=== PATIENT | male | born 1965 | race Caucasian/White ===

== ENCOUNTER 2021-12-29 06:57 | Day surgery (SDC) | payer BC ==
[2021-12-28 15:53] LABS: Absolute Lymphocytes (CBC) 1.8 K/uL (0.7-4.9); Hematocrit 35.3 % (39.6-49.0); Lymphocytes % 31.1 % (15.3-44.8); MPV 8.1 fL (7.6-11.3); RBC Red Blood Cell Count 4.53 M/uL (4.33-5.43)
--- NOTE | 2021-12-28 15:55 | RAD REPORT ---
EXAM DESCRIPTION: RAD - Chest Pa And Lat (2 Views) - 12/28/2021 3:48 pm CLINICAL HISTORY: Pre op pending hernia surgery COMPARISON: Chest Pa And Lat (2 Views) dated 03/23/2021 FINDINGS: Lines: None. Lungs: No evidence of edema or pneumonia. Pleural: No significant pleural effusions or pneumothorax. Cardiac: The heart size is within normal limits. Mediastinum: Within normal limits. Bones: No acute fractures. Other: Surgical changes in the epigastrium. IMPRESSION: No acute cardiopulmonary disease.
[2021-12-28 16:38] LABS: Potassium 3.6 mmol/L (3.5-5.1)
[2021-12-29] MEDS ORDERED: MIDAZOLAM HCL 2 MG/2 ML INJ ONE (07:04)
[2021-12-29] MEDS ORDERED: propofoL 200 MG/20 ML VIAL IV ONE (07:04)
[2021-12-29] MEDS ORDERED: LIDOCAINE 2% MPF 5 ML VIAL ONE (07:04)
[2021-12-29] MEDS ORDERED: ROCURONIUM 50 MG/5 ML VIAL IV ONE (07:04)
[2021-12-29] MEDS ORDERED: FENTANYL CITR 100 MCG/2 ML ONE (07:04)
[2021-12-29] MEDS ORDERED: ONDANSETRON 4 MG/2 ML VIAL ONE (07:07)
[2021-12-29] MEDS ORDERED: Ringers Lactate 1,000 ML IV ONE ×2 (07:21→10:26)
[2021-12-29] MEDS ORDERED: CEFAZOLIN SODIUM 1 GM/VIAL ONE (08:57)
[2021-12-29] MEDS ORDERED: KETOROLAC 30 MG/ML INJ ONE (09:23)
[2021-12-29] MEDS ORDERED: GLYCOPYRROLATE 0.2 MG/ML SYR ONE (10:00)
[2021-12-29] MEDS ORDERED: NEOSTIGMINE 1 MG/ML -5 ML ONE (10:01)
[2021-12-29] MEDS ORDERED: MORPHINE 10 MG/ML VIAL ONE (10:02)
--- NOTE | 2021-12-29 10:16 | P.BOP ---
Preoperative diagnosis: incarcerated incisional ventral hernia Postoperative diagnosis: same Primary procedure: Laparoscopic repair of incarcerated incisional ventral hernia with mesh Real Estate Subagent: KENYA TRIPP ([employer]) Estimated blood loss: <10cc Specimen: sac Findings: see dicta Anesthesia: General Complications: None Implants: ventralex mesh medium Transferred to: Recovery Room Condition: Good
--- NOTE | 2021-12-29 12:14 | DS ---
Diagnosis: Incarcerated incisional ventral hernia. Procedure: Laparoscopic repair of incarcerated incisional ventral hernia with mesh. Disposition: Home. Activity: As tolerated. No heavy lifting. Plan: Follow up in my office in 1 week. Call for appointment at [phone]. Keep area dry for 48 coni rs, then may shower. Use abdominal binder. JANEE/SHARON Voice ID: [id number] Report ID: [id number]
--- NOTE | 2021-12-29 12:27 | OP ---
Date of Procedure: 12/29/2021 Surgeon: Marshall Simmons MD Hoist Worker: DIONICIO Alexander. Preoperative Diagnosis: Incarcerated incisional ventral hernia. Postoperative Diagnosis: Incarcerated incisional ventral hernia. Procedure: Laparoscopic repair of incarcerated incisional ventral hernia with mesh. Estimated Blood Loss: Less than 10 cc. Specimen: Hernia sac. Finding: Incarcerated omentum through the hernia sac. Anesthesia: General plus local. Implant: Medium Ventralex mesh. Indication: This is the case of a 56-year-old patient comes to us with a bulge over the incision loc ated in the mid ventral region. He has previous surgery to that area, so we diagnosed with incisiona l ventral hernia, tender, not reducible. So benefits, alternatives, and risks of laparoscopic possib le open repair of the incisional ventral hernia with possible mesh fully explained, which include, bu t not limited to infection, bleeding, damage to adjacent structures, anesthesia complication, recurre nce, [place] and even . He also understands this may not relieve any symptoms. He might need more t de leon one surgical intervention. He understood, signed a consent. He understands pros and cons of mes h use. All the questions were answered to his satisfaction. He also understands the importance of n o heavy lifting and losing weight. Procedure In Detail: The patient was brought to the operating room, placed in supine position. Anes thesia was done without complication. A time-out was called. Abdomen was prepped and draped in the usual sterile fashion. Local anesthesia was applied. We made an incision where the patient had a pr evious incision. This allowed us at least to investigate the hernia sac trying to reduce that so we can do this laparoscopically. Once we opened the incision, we noted that the hernia sac was opened. The omentum after releasing some adhesions was carefully reduced into the abdominal cavity after ful ly inspected and seemed to be viable. Hernia sac and content were removed. I placed a Prolene #1 mu ltiple times in [id number] fashion over the area of the incision. We were able to place a Hasso n trocar right through this same incision and obtained pneumoperitoneum. We placed a 5 mm trocar in the left and right abdomen. This allowed me to put a 30-degree camera and visualized it midline. We identified the hernia, we already had stitches on it. We noticed that the fascial edges were too fr iable to be just hold with just stitches, so we decided to put a mesh in that region. A Ventralex me dium size was selected to cover the area about 3-5 cm. After that, I placed a Ventralex mesh through the trocar site. The Chuck trocar was carefully removed. The mesh looked lie nice and flat agains t the peritoneum and we proceeded to secure that by pulling the straps of this mesh. We proceeded th en to use a SorbaFix to fixate that to the anterior abdominal wall. The straps of the mesh were care fully removed. I proceeded then to tie the stitches placed on the fascial edges, #1 Prolene in a fig [id number] fashion, closed the defects to water and air tight. We further fixed the mesh into the anterior abdominal wall using a SorbaFix circumferentially. After that, then we inspected the area, no bleeding. At that moment, I proceeded to deflate the area under direct visualization. Then, afte r that, I closed the subcutaneous tissue with 3-0 chromic and the skin with gracia. Sponge count, i nstrument counts correct. The patient tolerated the procedure well. The patient was sent to recover y in stable condition. JANEE/SHARON Voice ID: [id number] Report ID: [id number]
--- NOTE | 2021-12-29 13:08 | EKG ---
Test Date: 2021-12-28 Test Time: 15:38:06 Director Trust: ESSIE MEASUREMENT RESULTS: Intervals: Rate: 61 LA: 188 QRSD: 106 QT: 416 QTc: 418 Dalton: P: 46 LA: 188 QRS: -5 T: 26 INTERPRETIVE STATEMENTS: Normal sinus rhythm Normal ECG No previous ECG available for comparison Electronically Signed On 12-29-21 13:06:42 CDT by Freeman Marie
[2021-12-29 14:20] VITALS: BP 109/64; TEMP 96.2; O2SAT 96
== END 2021-12-29 11:40 | disposition home or self-care (01) ==
LOC: PRE 06:57 → OR 11:40
PROVIDERS: ATTEND Surgery
PROC: 0WUF4JZ Supplement Abdominal Wall with Synthetic Substitute, Percutaneous Endoscopic Approach (ICD-10-PCS; principal; 2021-12-29 09:00)
DX: K43.6 Other and unspecified ventral hernia with obstruction, without gangrene (principal); I10 Essential (primary) hypertension; K21.9 Gastro-esophageal reflux disease without esophagitis; E66.9 Obesity, unspecified
CPT/HCPCS: 93005; 85025; 80048; 36415; 88302; 71046; 49653; J2704; J2001; J2250; J3010; J2710; J7120 ×2; J2405; J0690

== ENCOUNTER 2021-12-29 20:47 | Emergency (ER) | payer BC ==
--- OUTSIDE RECORDS SUMMARY | 2021-12-29 20:52 | XMS REPORT | Continuity of Care Document ---
:1965 Author Organization [facility] t Address [address] [place] [address] Care Team Providers Name Role Phone [phone] Primary Care Physician Unavailable KATHY_Georgi_Per_ Attending Clinician Unavailable JENNIFER NOVAK Attending Clinician Unavailable MALISSA DOTY Attending Clinician Unavailable Per Laureano Attending Clinician [phone] Per Laureano Attending Clinician Unavailable SAMEER GANDHI Attending Clinician Unavailable aSmeer Gandhi MD Attending Clinician Prince JAUREGUI, Jagjit Massey Attending Clinician [phone] Mary Astorga CRNA Attending Clinician KENDAL CLAY Attending Clinician Unavailable CHIP GASTON Attending Clinician Unavailable KATHY_Georgi_Per_ Admitting Clinician Unavailable Per Laureano Admitting Clinician Unavailable SAMEER GANDHI Admitting Clinician Unavailable Payers Payer Name Policy Type Policy Number Effective Date Expiration Date Ilana tena [place]: [id number] 2010 [facility] 00:00: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 [place] POS [id number] 2010 00:00:00 [place] [id number] 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: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 Blue Cross Blue C1 [id number] Common Sp pierre Shield of [facility] Problems Condition Condition Condition Status Onset Resolution Last Treating Co mments Source Name Details Category Date Date Treatment Clinician Date Osteoarthr Osteoarthr Problem Active A zalea itis of itis of 5-17 Orthope right knee Right Knee 00:00: di c joint Joint 00 Sports Medicin e Osteoarthr Osteoarthr Problem Active A zalea itis of itis of 5-17 Orthope left knee Left Knee 00:00: dic joint Joint 00 Sports Medicin e Right Right Disease Active [facility] mass renal mass 3-03 [facility] kes 00:00: Medical 00 Center Osteoarthr Osteoarthr Problem Active 2020-03 A zalea itis of itis of 2-28 Orthope knee Knee 00:00: dic 00 Sports Medicin e [id number] 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[facility] kidney [facility] [id number] S/P Problem Active Common laparoscop Spirit ic surgery [facility] [id number] Incomplete Problem Active Co mmon emptying Spirit of bladder [facility] Disorder Renal Problem Active Common of kidney mass, Spirit and/or right - [facility] ureter [facility] [id number] Acute Problem Active Common cystitis Spirit without [facility] hematuria [facility] [id number] Pyelonephr Problem Active Com mon itis, Spirit acute [facility] [id number] BPH loc w Problem Active Com mon urin Spirit obs/LUTS [facility] [id number] Gross Problem Active Common hematuria [facility] Allergies, Adverse Reactions, Alerts Allergy Allergy Status Severity Reaction(s) Onset Inactive Treating Comm ents Source Name Type Date Date Clinician No Known DA Active U [facility]ie 08-31 [place] [facility] 00:[facility]: Orthope [facility] TESTOSTE Allergy Active Dermatitis 2016-0 [facility] H NONA 306 00:00: 00 TESTOSTE DRUG Active Dermatitis 2016-0 MD PERALTAE INGREDI 306 Anderso 00:00: n 00 TESTOSTE DRUG Active Dermatitis 2017-0 MD NONA INGREDI 3 Anderso 00:00: n 00 TESTOSTE DRUG Active Dermatitis 2017-0 MD NONA INGREDI 3 Anderso 00:00: n 00 TESTOSTE DRUG Active Dermatitis 2017-0 MD NONA INGREDI 3 Anderso 00:00: n 00 TESTOSTE DRUG Active Dermatitis 2017-0 MD NONA INGREDI 3 Anderso 00:00: n 00 TESTOSTE DRUG Active Dermatitis 2017-0 MD NONA INGREDI 3 Anderso 00:00: n 00 TESTOSTE DRUG Active Dermatitis 2017-0 MD NONA INGREDI 306 Anderso 00:00: n 00 TESTOSTE DRUG Active Dermatitis 2017-0 MD NONA INGREDI 306 Anderso 00:00: n 00 TESTOSTE DRUG Active Dermatitis 2017-0 MD NONA INGREDI 306 Anderso 00:00: n 00 TESTOSTE DRUG Active Dermatitis 2017-0 MD NONA INGREDI 306 Anderso 00:00: n 00 TESTOSTE DRUG Active Dermatitis 2017-0 MD NONA INGREDI 306 Anderso 00:00: n 00 TESTOSTE DRUG Active Dermatitis 2017-0 MD NONA INGREDI 306 Anderso 00:00: n 00 TESTOSTE DRUG Active Dermatitis 2017-0 MD NONA INGREDI 306 Anderso 00:00: n 00 TESTOSTE DRUG Active Dermatitis 2017-0 MD NONA INGREDI 306 Anderso 00:00: n 00 TESTOSTE DRUG Active Dermatitis 2017-0 MD NONA INGREDI 306 Anderso 00:00: n 00 No Known DA Active U [facility] Allergie 07-05 Clear s 00:00: [place] 00 [facility] NO KNOWN Allergy Active [facility] Social History Social Habit Start Date Stop Date Quantity Comments Source History of Tobacco [facility] - Use [facility] History SDOH [facility] Alcohol Std Drinks Medica l Center History SDOH [facility] Alcohol Binge Medical Luis ter History SDOH [facility] Alcohol Comment Medical C enter Alcohol intake 2021-05-07 2021-05-[address] [facility] es 00:00:00 00:00:00 non-drinker Medical Cente r (finding) Tobacco use and 2021-05-04 2021-05-[address] Mel[facility]ie kes exposure 00:00:00 00:00:00 Medical Center History SDOH 2021-05-04 2021-05-[address] [facility] Alcohol Frequency 00:00:00 00:00:[facility] Sex Assigned At [address] Melodie kes 00:00:00 00:00:00 [facility] Smoking Status Start Date Stop Date Source Never Smoker [facility] - [facility] Medications Ordered Filled Start Stop Current Ordering Indication Dosage Frequency Signature Comments Components Source Medication Medication Date Date Medication? Clinician (SIG) Name Name Tom Santos No 1g Commo n (Ceftriaxon (Ceftriaxon 6-01 S pirit e) e) 00:00: - [facility] Tom Santos 0 No 1g Commo n (Ceftriaxon (Ceftriaxon 6-01 S pirit e) e) 00:00: - [facility] Ramanwyfrench Camargowyfrench 0 No 1g Commo n (Ceftriaxon (Ceftriaxon 6-01 S pirit e) e) 00:00: - [facility] Cipro 500 Cipro 500 2021- No 1{table BID Cipro 500 MG MG 08-0415 t} MG 00:00: 00:00 00 :00 Cipro 500 Cipro 500 2021- No 1{table BID Cipro 500 MG MG 08-0415 t} MG 00:00: 00:00 00 :00 Cipro 500 Cipro 500 0 2021- No 1{table BID Cipro 500 MG MG 08-0415 t} MG 00:00: 00:00 00 :00 desmopressi Yes partial .2mg Q.[id number] Take 0.[address] n (DDAVP) 3-05 central [id number] mg by Lukes 0.2 MG 16:10: diabetes 3D mouth 3 Medi tolu tablet 48 insipidus (three) Cente r times daily. losartan Yes 100mg QD Take [address] (COZAAR) 3-05 mg by Lukes 100 MG 16:10: mouth Medical tablet 48 every Center morning. levothyroxi Yes 150ug Take [address] ne 3-05 mcg by Lukes (SYNTHROID, 16:10: mouth Medic al LEVOTHROID) 48 Every Center 150 MCG morning on tablet an empty stomach. rosuvastati Yes 5mg QD Take [address] n (CRESTOR) 3-05 by mouth Luke s 5 MG tablet 16:10: every Medic al 48 morning. [place] tamsulosin Yes .4mg QD Take 0.[address] [facility] (FLOMAX) 3-05 mg by Lukes 0.4 mg Cap 16:10: mouth Medica l 24 hr 48 nightly. [place] capsule testosteron Yes 40mg QD Place [address] e 10 mg/0.5 3-05 mg onto Lukes gram 16:10: the skin Medical /actuation 48 every Center GlPm morning 1 pump per shoulder . famotidine Yes 20mg QD Take [address] (PEPCID) 20 3-05 by mouth Luke s MG tablet 16:10: nightly. Medi tolu 48 [place] naproxen 2021- No pain 500mg Take [address] [facility] (NAPROSYN) 3-05 03-05 mg by Lukes 500 MG 11:37: 00:00 mouth as Medica l tablet 24 :00 needed. [place] docusate 2021- No 100mg Q.5D Take 1 [facility] t sodium 3-05 03-15 capsule Lukes (COLACE) 00:00: 23:59 (100 mg Medic al 100 MG 00 :00 total) by Center capsule mouth 2 (two) times daily for 10 days. traMADoL 2021- No 100mg Take [address] 100 mg Tab 3-05 03-15 mg by Lukes 00:00: 23:59 mouth Medical 00 :00 every 6 Center (six) hours as needed for up to 10 days. Max Daily Amount: 400 mg Tamsulosin Tamsulosin 2020-03- No 1{capsu BID Tamsulosin HCl 0.4 MG HCl 0.4 MG 04-03 le} HCl 0.4 MG 00:00: 00:00 00 :00 Tamsulosin Tamsulosin 2020-03- No 1{capsu BID Tamsulosin HCl 0.4 MG HCl 0.4 MG 04-03 le} HCl 0.4 MG 00:00: 00:00 00 :00 Tamsulosin Tamsulosin 2020-03- No 1{capsu BID Tamsulosin HCl 0.4 MG HCl 0.4 MG 04-03 le} HCl 0.4 MG 00:00: 00:00 00 :00 Tamsulosin Tamsulosin 2020-03- No 1{capsu QD Tamsulosin HCl 0.4 MG HCl 0.4 MG 04-03 le} HCl 0.4 MG 00:00: 00:00 00 :00 Tamsulosin Tamsulosin 2020-03- No 1{capsu QD Tamsulosin HCl 0.4 MG HCl 0.4 MG 04-03 le} HCl 0.4 MG 00:00: 00:00 00 :00 Tamsulosin Tamsulosin 2020-03- No 1{capsu QD Tamsulosin HCl 0.4 MG HCl 0.4 MG 04-03 le} HCl 0.4 MG 00:00: 00:00 00 :00 Tamsulosin Tamsulosin 2020-03- No 1{capsu QD Tamsulosin HCl 0.4 MG HCl 0.4 MG 04-03 le} HCl 0.4 MG 00:00: 00:00 00 :00 Tamsulosin Tamsulosin 2020-03- No 1{capsu QD HCl 0.4 MG HCl 0.4 MG 04-03 le} 00:00: 00:00 00 :00 Tamsulosin Tamsulosin 2020-03- No 1{capsu QD Tamsulosin HCl 0.4 MG HCl 0.4 MG 04-03 le} HCl 0.4 MG 00:00: 00:00 00 :00 Tamsulosin Tamsulosin 2020-03- No 1{capsu QD Tamsulosin HCl 0.4 MG HCl 0.4 MG 04-03 le} HCl 0.4 MG 00:00: 00:00 00 :00 Tamsulosin Tamsulosin 2020-03- No 1{capsu QD Tamsulosin HCl 0.4 MG HCl 0.4 MG 04-03 le} HCl 0.4 MG 00:00: 00:00 00 :00 Tamsulosin Tamsulosin 2020-03- No 1{capsu QD Tamsulosin HCl 0.4 MG HCl 0.4 MG 04-03 le} HCl 0.4 MG 00:00: 00:00 00 :00 tizanidine tizanidine No tizanidine Mar[facility] 4 mg tablet 4 mg tablet 4 mg O rthope TAKE 1 TAKE 1 tablet dic TABLET BY TABLET BY TAKE 1 Spo rts MOUTH EVERY MOUTH EVERY TABLET BY Medicin 8 HOURS 8 HOURS MOUTH e NEEDED FOR NEEDED FOR EVERY 8 MUSCLE MUSCLE HOURS SPASM SPASM NEEDED FOR MUSCLE SPASM tramadol 50 tramadol 50 No tramadol [facility]ley mg tablet mg tablet 50 mg Orth ope TAKE 1 TAKE 1 tablet dic TABLET BY TABLET BY TAKE 1 Spo rts MOUTH EVERY MOUTH EVERY TABLET BY Medicin 4 TO 6 4 TO 6 MOUTH e HOURS HOURS EVERY 4 TO NEEDED FOR NEEDED FOR 6 HOURS PAIN PAIN NEEDED FOR PAIN Losartan Losartan No 1{table QD Losartan Potassium Potassium t} Potassium 100 MG 100 MG 100 MG Naproxen Naproxen No BID Naproxen 500 MG 500 MG 500 MG Desmopressi Desmopressi No 1{table QD Desmopress n Acetate n Acetate t_at_be in Acetate 0.2 MG 0.2 MG dtime} 0.2 MG Synthroid Synthroid No QD Synthroid 150 MCG 150 MCG 150 MCG Famotidine Famotidine No 1{table QD Famotidine 20 MG 20 MG t_at_be 20 MG dtime_a s_neede d} Losartan Losartan No 1{table QD Losartan Potassium Potassium t} Potassium 100 MG 100 MG 100 MG Naproxen Naproxen No BID Naproxen 500 MG 500 MG 500 MG Synthroid Synthroid No QD Synthroid 150 MCG 150 MCG 150 MCG Losartan Losartan No 1{table QD Losartan Potassium Potassium t} Potassium 100 MG 100 MG 100 MG Famotidine Famotidine No 1{table QD Famotidine 20 MG 20 MG t_at_be 20 MG dtime_a s_neede d} Desmopressi Desmopressi No 1{table QD Desmopress n Acetate n Acetate t_at_be in Acetate 0.2 MG 0.2 MG dtime} 0.2 MG Famotidine Famotidine No 1{table QD Famotidine 20 MG 20 MG t_at_be 20 MG dtime_a s_neede d} Naproxen Naproxen No BID Naproxen 500 MG 500 MG 500 MG Synthroid Synthroid No QD Synthroid 150 MCG 150 MCG 150 MCG Desmopressi Desmopressi No 1{table QD Desmopress n Acetate n Acetate t_at_be in Acetate 0.2 MG 0.2 MG dtime} 0.2 MG Losartan Losartan No 1{table QD Losartan Potassium Potassium t} Potassium 100 MG 100 MG 100 MG Losartan Losartan No 1{table QD Losartan Potassium Potassium t} Potassium 100 MG 100 MG 100 MG Famotidine Famotidine No 1{table QD Famotidine 20 MG 20 MG t_at_be 20 MG dtime_a s_neede d} Desmopressi Desmopressi No 1{table QD Desmopress n Acetate n Acetate t_at_be in Acetate 0.2 MG 0.2 MG dtime} 0.2 MG Synthroid Synthroid No QD Synthroid 150 MCG 150 MCG 150 MCG Naproxen Naproxen No BID Naproxen 500 MG 500 MG 500 MG Losartan Losartan No 1{table QD Losartan Potassium Potassium t} Potassium 100 MG 100 MG 100 MG Famotidine Famotidine No 1{table QD Famotidine 20 MG 20 MG t_at_be 20 MG dtime_a s_neede d} Desmopressi Desmopressi No 1{table QD Desmopress n Acetate n Acetate t_at_be in Acetate 0.2 MG 0.2 MG dtime} 0.2 MG Synthroid Synthroid No QD Synthroid 150 MCG 150 MCG 150 MCG Naproxen Naproxen No BID Naproxen 500 MG 500 MG 500 MG Synthroid Synthroid No QD Synthroid 150 MCG 150 MCG 150 MCG Naproxen Naproxen No BID Naproxen 500 MG 500 MG 500 MG Losartan Losartan No 1{table QD Losartan Potassium Potassium t} Potassium 100 MG 100 MG 100 MG Desmopressi Desmopressi No 1{table QD Desmopress n Acetate n Acetate t_at_be in Acetate 0.2 MG 0.2 MG dtime} 0.2 MG Famotidine Famotidine No 1{table QD Famotidine 20 MG 20 MG t_at_be 20 MG dtime_a s_neede d} Synthroid Synthroid No QD 150 MCG 150 MCG Naproxen Naproxen No BID 500 MG 500 MG Losartan Losartan No 1{table QD Potassium Potassium t} 100 MG 100 MG Desmopressi Desmopressi No 1{table QD n Acetate n Acetate t_at_be 0.2 MG 0.2 MG dtime} Famotidine Famotidine No 1{table QD 20 MG 20 MG t_at_be dtime_a s_neede d} Losartan Losartan No 1{table QD Losartan Potassium Potassium t} Potassium 100 MG 100 MG 100 MG Desmopressi Desmopressi No 1{table QD Desmopress n Acetate n Acetate t_at_be in Acetate 0.2 MG 0.2 MG dtime} 0.2 MG Naproxen Naproxen No BID Naproxen 500 MG 500 MG 500 MG Synthroid Synthroid No QD Synthroid 150 MCG 150 MCG 150 MCG Famotidine Famotidine No 1{table QD Famotidine 20 MG 20 MG t_at_be 20 MG dtime_a s_neede d} Losartan Losartan No 1{table QD Losartan Potassium Potassium t} Potassium 100 MG 100 MG 100 MG Desmopressi Desmopressi No 1{table QD Desmopress n Acetate n Acetate t_at_be in Acetate 0.2 MG 0.2 MG dtime} 0.2 MG Naproxen Naproxen No BID Naproxen 500 MG 500 MG 500 MG Synthroid Synthroid No QD Synthroid 150 MCG 150 MCG 150 MCG Famotidine Famotidine No 1{table QD Famotidine 20 MG 20 MG t_at_be 20 MG dtime_a s_neede d} Losartan Losartan No 1{table QD Losartan Potassium Potassium t} Potassium 100 MG 100 MG 100 MG Desmopressi Desmopressi No 1{table QD Desmopress n Acetate n Acetate t_at_be in Acetate 0.2 MG 0.2 MG dtime} 0.2 MG Naproxen Naproxen No BID Naproxen 500 MG 500 MG 500 MG Synthroid Synthroid No QD Synthroid 150 MCG 150 MCG 150 MCG Famotidine Famotidine No 1{table QD Famotidine 20 MG 20 MG t_at_be 20 MG dtime_a s_neede d} Losartan Losartan No 1{table QD Losartan Potassium Potassium t} Potassium 100 MG 100 MG 100 MG Desmopressi Desmopressi No 1{table QD Desmopress n Acetate n Acetate t_at_be in Acetate 0.2 MG 0.2 MG dtime} 0.2 MG Naproxen Naproxen No BID Naproxen 500 MG 500 MG 500 MG Synthroid Synthroid No QD Synthroid 150 MCG 150 MCG 150 MCG Famotidine Famotidine No 1{table QD Famotidine 20 MG 20 MG t_at_be 20 MG dtime_a s_neede d} Naproxen Naproxen No BID Naproxen 500 MG 500 MG 500 MG Desmopressi Desmopressi No 1{table QD Desmopress n Acetate n Acetate t_at_be in Acetate 0.2 MG 0.2 MG dtime} 0.2 MG Synthroid Synthroid No QD Synthroid 150 MCG 150 MCG 150 MCG Famotidine Famotidine No 1{table QD Famotidine 20 MG 20 MG t_at_be 20 MG dtime_a s_neede d} aspirin 81 aspirin 81 No aspirin 81 [facility] mg mg mg Orthope tablet,nikos tablet,nikos tablet,del dic yed release yed release ayed S ports TAKE 1 TAKE 1 release Medicin TABLET BY TABLET BY TAKE 1 e MOUTH TWICE MOUTH TWICE TABLET BY DAILY DAILY MOUTH TWICE DAILY desmopressi desmopressi No desmopress Marley n 0.2 mg n 0.2 mg in 0.2 mg Or thope tablet tablet tablet dic Sports Medicin e diclofenac diclofenac No diclofenac [facility] sodium 75 sodium 75 sodium 75 Orthope mg mg mg dic tablet,nikos tablet,nikos tablet,del Sports yed release yed release ayed M edicin TAKE 1 TAKE 1 release e TABLET BY TABLET BY TAKE 1 MOUTH TWICE MOUTH TWICE TABLET BY DAILY AFTER DAILY AFTER MOUTH FINISHING 5 FINISHING 5 TWICE DAYS OF DAYS OF DAILY KETOROLAC KETOROLAC AFTER FINISHING 5 DAYS OF KETOROLAC doxycycline doxycycline No doxycyclin [facility] hyclate 100 hyclate 100 e hyclate Orthope mg capsule mg capsule 100 mg d ic TAKE 1 TAKE 1 capsule Sports CAPSULE BY CAPSULE BY TAKE 1 M edicin MOUTH TWICE MOUTH TWICE CAPSULE BY e DAILY FOR 7 DAILY FOR 7 MOUTH DAYS DAYS TWICE DAILY FOR 7 DAYS Hibiclens 4 Hibiclens 4 No 1applic Q1D Hibiclens Marley % topical % topical ation(s 4 % Or thope liquid liquid ) topical dic Apply 1 Apply 1 liquid Sports application application Apply 1 Medicin every day every day applicatio e by topical by topical n every route as route as day by directed directed topical for 5 days. for 5 days. route as directed for 5 days. ketorolac ketorolac No ketorolac Mar[facility] 10 mg 10 mg 10 mg Orth[facility] tablet TAKE tablet TAKE tablet dic 1 TABLET BY 1 TABLET BY TAKE 1 Sports MOUTH EVERY MOUTH EVERY TABLET BY Medicin 6 HOURS FOR 6 HOURS FOR MOUTH e 5 DAYS 5 DAYS EVERY 6 HOURS FOR 5 DAYS losartan losartan No losartan Aza padma 100 mg 100 mg 100 mg Orth[facility] tablet TAKE tablet TAKE tablet dic 1 TABLET BY 1 TABLET BY TAKE 1 Sports MOUTH EVERY MOUTH EVERY TABLET BY Medicin DAY DAY MOUTH e EVERY DAY mupirocin 2 mupirocin 2 No mupirocin Marley % topical % topical 2 % Ortho pe ointment ointment topical dic APPLY FULL APPLY FULL ointment Sports QTIP TO QTIP TO APPLY FULL Med icin EACH EACH QTIP TO e NOSTRIL BID NOSTRIL BID EACH STARTING 5 STARTING 5 NOSTRIL DAYS PRIOR DAYS PRIOR BID TO SURGERY TO SURGERY STARTING 5 DAYS PRIOR TO SURGERY tamsulosin tamsulosin No tamsulosin [facility] 0.4 mg 0.4 mg 0.4 mg Orthope capsule capsule capsule dic TAKE 1 TAKE 1 TAKE 1 Sports CAPSULE BY CAPSULE BY CAPSULE BY Medicin MOUTH TWICE MOUTH TWICE MOUTH e DAILY DAILY TWICE DAILY testosteron testosteron No testostero Marley e 10 mg/0.5 e 10 mg/0.5 ne 10 Orthope gram/actuat gram/actuat mg/0.5 dic ion ion gram/actua Sports transdermal transdermal tion M edicin gel pump gel pump transderma e APPLY 2 APPLY 2 l gel pump PUMPS TO PUMPS TO APPLY 2 SKIN DAILY SKIN DAILY PUMPS TO IN THE IN THE SKIN DAILY MORNING TO MORNING TO IN THE THIGHS THIGHS MORNING TO THIGHS Immunizations Ordered Filled Immunization Date Status Comments Sourc e Immunization Name Name influenza, influenza, 2021-03-08 Completed [facility] dic seasonal, seasonal, 00:00:00 Sports Medicin e injectable injectable Vital Signs Vital Name Observation Time Observation Value Comments Source Height 2021-11-29 00:00:00 70 [in_i] [facility] BMI (Body Mass 2021-11-29 00:00:00 245 kg/m2 [facility] Index) Sports Medicine height 2021-08-11 08:00:00 70 [in_i] [facility] weight 2021-08-11 08:00:00 252 [lb_av] [facility] temperature 2021-08-11 08:00:00 98.3 [degF] [facility] bmi 2021-08-11 08:00:00 36.15 kg/m2 [facility] oximetry 2021-08-11 08:00:00 99 % [facility] respiratory rate 2021-08-11 08:00:00 16 /min Comm on [facility] blood pressure 2021-08-11 08:00:00 123 mm[Hg] [facility] - systolic [facility] blood pressure 2021-08-11 08:00:00 71 mm[Hg] Common [facility] - diastolic [facility] height 2021-08-04 16:15:00 70 [in_i] [facility] weight 2021-08-04 16:15:00 251.8 [lb_av] [facility] temperature 2021-08-04 16:15:00 99.9 [degF] [facility] bmi 2021-08-04 16:15:00 36.13 kg/m2 [facility] oximetry 2021-08-04 16:15:00 99 % [facility] respiratory rate 2021-08-04 16:15:00 18 /min Comm on [facility] blood pressure 2021-08-04 16:15:00 118 mm[Hg] Common [facility] - systolic [facility] blood pressure 2021-08-04 16:15:00 80 mm[Hg] Common [facility] - diastolic [facility] height 2021-06-16 16:15:00 70 [in_i] [facility] weight 2021-06-16 16:15:00 251.2 [lb_av] [facility] temperature 2021-06-16 16:15:00 97.4 [degF] [facility] bmi 2021-06-16 16:15:00 36.04 kg/m2 [facility] oximetry 2021-06-16 16:15:00 96 % [facility] respiratory rate 2021-06-16 16:15:00 16 /min Comm on [facility] blood pressure 2021-06-16 16:15:00 136 mm[Hg] Common [facility] - systolic [facility] blood pressure 2021-06-16 16:15:00 98 mm[Hg] Common [facility] diastolic [facility] HEIGHT 2021-05-06 05:40:00 175.3 cm WEIGHT 2021-05-06 05:40:00 109.1 kg HEIGHT 2021-05-04 15:59:00 177.8 cm WEIGHT 2021-05-04 15:59:00 113.399 kg HEIGHT 2021-05-06 05:40:00 175.3 cm WEIGHT 2021-05-06 05:40:00 109.1 kg HEIGHT 2021-05-04 15:59:00 177.8 cm WEIGHT 2021-05-04 15:59:00 113.399 kg HEIGHT 2021-05-06 05:40:00 175.3 cm WEIGHT 2021-05-06 05:40:00 109.1 kg HEIGHT 2021-05-04 15:59:00 177.8 cm WEIGHT 2021-05-04 15:59:00 113.399 kg height 2021-03-31 13:15:00 70 [in_i] Common S pirit - [facility] weight 2021-03-31 13:15:00 245 [lb_av] Common S pirit [facility] temperature 2021-03-31 13:15:00 98 [degF] Common S pirit [facility] bmi 2021-03-31 13:15:00 35.15 kg/m2 Common S pirit [facility] oximetry 2021-03-31 13:15:00 98 % Common S pirit [facility] respiratory rate 2021-03-31 13:15:00 16 /min Comm on [facility] blood pressure 2021-03-31 13:15:00 125 mm[Hg] [facility] - systolic [facility] blood pressure 2021-03-31 13:15:00 79 mm[Hg] [facility] - diastolic [facility] height 2021-03-17 14:00:00 70 [in_i] Common S pirit [facility] weight 2021-03-17 14:00:00 245.2 [lb_av] Common [facility] temperature 2021-03-17 14:00:00 98 [degF] Common S pirit [facility] bmi 2021-03-17 14:00:00 35.18 kg/m2 Common S pirit [facility] oximetry 2021-03-17 14:00:00 97 % [facility] 2021-[facility]-17 14:00:00 16 /min Comm on [facility] blood pressure 2021-03-17 14:00:00 130 mm[Hg] [facility] - systolic [facility] blood pressure 2021-03-17 14:00:00 83 mm[Hg] [facility] - diastolic [facility] height 2021-02-01 13:40:00 70 [in_i] Common S pirit [facility] weight 2021-02-01 13:40:00 247.2 [lb_av] Common [facility] temperature 2021-02-01 13:40:00 99 [degF] [facility] bmi 2021-02-01 13:40:00 35.47 kg/m2 [facility] oximetry 2021-02-01 13:40:00 92 % [facility] blood pressure 2021-02-01 13:40:00 142 mm[Hg] [facility] Spirit - systolic [facility] blood pressure 2021-02-01 13:40:00 93 mm[Hg] [facility] - diastolic [facility] WEIGHT 2019-09-05 00:00:00 106.6 kg Systolic blood 2021-05-08 15:00:00 124 mm[Hg] [facility] Diastolic blood 2021-05-08 15:00:00 69 mm[Hg] [facility] Heart rate 2021-05-08 15:00:00 72 /min [facility] Body temperature 2021-05-08 15:00:00 36.17 [place] [facility] Respiratory rate 2021-05-08 15:00:00 18 /min [facility] Oxygen saturation in 2021-05-08 15:00:00 99 /min [facility] Arterial blood by Medical Ce nter Pulse oximetry Body height 2021-05-06 05:40:00 175.3 cm [facility] Body weight 2021-05-06 05:40:00 109.1 kg [facility] BMI 2021-05-06 05:40:00 35.52 kg/m2 [facility] Procedures Procedure Date / Time Performing Clinician Source Performed Total Replacement of 2021-08-31 00:00:00 [facility] Right K[facility] HEMOGLOBIN AND 2021-05-08 05[facility]10[facility] 2021-05-08 05:10:[facility] 2021-05-07 04:01[facility] 2021-05-07 04:01:00 [facility] CHEST 1 VIEW 2021-05-06 14:02[facility] BASIC METABOLIC PANEL 2021-05-06 13:56:00 Zechariah Gunderson [facility] HEMOGLOBIN AND 2021-05-06 13:56:00 Zechariah Gunderson [facility] [facility] HEMATOCRIT Center TISSUE EXAM 2021-05-06 12:41:00 Sameer Gandhi [facility] ROBOTIC 2021-05-06 07:15:00 [facility],NEPHRECTOMY Center -PARTIAL PROCEDURE W/ DAVINCI XI 2021-05-06 07:15:00 [facility] PREPARE LEUKO-REDUCED 2021-05-06 06:22:00 Karen Patricio [facility] RBC [place] ABORH, MANUAL 2021-05-06 05:58:00 Elsa Marmolejo [facility] Cancer Surgery 2021-05-06 00:00:00 [facility] ECG 12-LEAD 2021-05-03 14:37:36 Mohit Gerardo [facility] ECG 12-LEAD 2021-05-03 14:37:36 Unknown, Hl7 Doctor [facility] SARS-COV2/RT-PCR ([facility] 2021-05-03 14:33:00 Sameer Gandhi [facility] Medical & REF LABS) Center HEMOGLOBIN 2021-05-03 14:33:00 Mohit Gerardo [facility] BASIC METABOLIC PANEL 2021-05-03 14:33:00 Mohit Gerardo [facility] TYPE AND SCREEN, 2021-05-03 14:33:00 Sameer Gandhi [facility]ATED [facility] Foot Surgery 2015-03-17 00:00:00 [facility] Arm Surgery 2011-04-20 00:00:00 [facility] Thyroid Surgery 2007-07-09 00:00:00 [facility] Knee Surgery 1984-07-11 00:00:00 [facility] Plan of Care Planned Activity Planned Date Details Comments Source Future Scheduled Test 2021-11-[address] [facility] 00:00:00 (#1) [code = Medical Center INFLUENZA VACCINE (#1)] Future Scheduled Test 2021-03-[address] [facility] 00:00:00 (12+) [code = Medical Center DEPRESSION SCREENING (12+)] Future Scheduled Test 2016 SHINGLES VACCINES ([address] [facility] 00:00:00 of 2) [code = Medical Center SHINGLES VACCINES (1 of 2)] Future Scheduled Test [address] [facility] 00:00:00 (procedure) [code = Medical Center [id number]] Future Scheduled Test 1985 DTAP/TDAP/TD VACCINES [facility] 00:00:00 (1 - Tdap) [code = Medical C enter DTAP/TDAP/TD VACCINES (1 - Tdap)] Future Scheduled Test 1984 HEPATITIS C SCREENING [facility] 00:00:00 [code = HEPATITIS C Medical Center SCREENING] Future Scheduled Test 1967-04-25 COVID-19 VACCINE (#1) [facility] 00:00:00 [code = COVID-[address] VACCINE (#1)] Future Scheduled Test [address] [facility] 00:00:00 (combo) [code = CT Medical C enter Colonography (combo)] Future Scheduled Test 1965 [facility] malignant neoplasm of [facility]ica l Center colon (procedure) [code = 627048774] Future Scheduled Test 1965 [facility] Center colon (procedure) [code = 113114385] Future Scheduled Test 1965 [facility] malignant neoplasm [facility] Center colon (procedure) [code = 301926192] Future Scheduled Test 1965 [facility] malignant neoplasm of Medica l Center colon (procedure) [code = 882454182] Future Scheduled Test 1965 Sigmoidoscopy [code = [facility] 00:00:00 Sigmoidoscopy] Medical Sophia Roach Orthoped [facility] Sports Medicine Encounters Start End Encounter Admission Attending Care Care Encounter Source Date/Time Date/Time Type Type Clinicians Facility Department ID 2021-08-03 Outpatient [facility] [id number] Common 09:46:03 [facility] 2021-04-30 Outpatient [facility] [id number] Common 09:12:02 [facility] 2021-04-22 Outpatient [facility] [id number] Common 13:23:02 [facility] 2021-03-31 Outpatient [facility] [id number] Common 14:18:12 [facility] 2021-11-29 2021-11-29 Outpatient FOG_Burke_R AOSM AOSM 627 5000-20 Marley 00:00:00 00:00:00 Qi [id number] Ortho pe dic Sports Medic[facility] e 2021-11-29 2021-11-29 Per Chinchilla AOSM [place] - Ortho [place] 00:00:00 00:00:00 MD Georgi: Evelyn Romeo [address] [facility] [address] [place], [place] [address] [place] [address] , Ph. [phone] 2021-11-25 2021-11-25 Outpatient FOG_Burke_R AOSM AOSM 627 5000-20 Marley 00:00:00 00:00:00 Qi [id number] Ortho pe dic Sports Medicin e 2021-11-11 2021-11-11 Outpatient GHAZALA NOVAK MDA MDA [id number] 08:42:43 23:59:00 JENNIFER braswell 2021-11-11 2021-11-11 Outpatient GHAZALA NOVAK MDA MDA [id number] 12:33:34 15:56:13 JENNIFER braswell 2021-11-11 2021-11-11 Outpatient MALISSA MALDONADO MDA, MDA [id number] 11:04:58 12:31:39 Shoaib braswell 2021-11-11 2021-11-11 Outpatient GHAZALA NOVAK MDA MDA [id number] 09:38:12 09:38:12 JENNIFER Shoaib o n 2021-11-05 2021-11-05 Outpatient FOG_Burke_R AOSM AOSM 627 [id number] Marley 00:00:00 00:00:00 Qi [id number] Ortho pe dic Sports Medicin e 2021-11-05 2021-11-05 Outpatient Georgi AOSM AOSM [id number] 00:00:00 00:00:00 Per Chinchilla [id number] 2021-11-05 2021-11-05 Per Chinchilla AOSM [place] - Ortho [place] 00:00:00 00:00:00 MD Georgi: Evelyn Melgoza - Orthoppk [address] [place], [address], [place] [address] , Ph. [phone] 2021-10-22 2021-10-22 Outpatient FOG_Burke_R AOSM AOSM 627 5000-20 Marley 00:00:00 00:00:00 Qi 163829 Ortho pe dic Sports Medicin e 2021-10-13 2021-10-13 Outpatient FOG_Burke_R AOSM AOSM 627 5000-20 Marley 00:00:00 00:00:00 Qi 570636 Ortho pe dic Sports Medicin e 2021-10-13 2021-10-13 Outpatient Laureano, AOSM AOSM [id number] 00:00:00 00:00:00 Per Chinchilla [id number] 2021-09-22 2021-09-22 Outpatient FOG_Burke_R AOSM AOSM 627 5000-20 Marley 00:00:00 00:00:00 Qi 403485 Ortho pe dic Sports Medicin e 2021-09-13 2021-09-13 Outpatient FOG_Burke_R AOSM AOSM 627 5000-20 Marley 03:19:00 03:19:00 Qi 982747 Ortho pe dic Sports Medicin e 2021-09-13 2021-09-13 Outpatient Laureano, AOSM AOSM [id number] 00:00:00 00:00:00 Per Chinchilla [id number] 2021-09-02 2021-09-02 Outpatient FOG_Georgi_R AOSM AOSM 627 5000-20 Marley 09:49:00 09:49:00 Qi 069624 Ortho pe dic Sports Medicin e 2021-08-31 2021-09-01 Inpatient MATTHEW Machado [id number] [facility] 05:51:00 12:01:00 Per [id number] [place] [facility] 2021-05-25 2021-09-01 Inpatient MATTHEW Machado HCATO [id number] [facility] 07:30:00 12:01:00 Per 50 [place] [facility] 2021-08-12 2021-08-12 (TEL) STLC STLMLC [id number] Co mmon 00:00:00 00:00:00 [facility] 2021-08-11 2021-08-11 Outpatient PILAR Laureano LABO [id number] [facility] 16:22:00 16:22:00 Per Lr [facility] 2021-08-11 2021-08-11 OFFICE STLMLC STLMLC [id number] Co mmon 00:00:00 00:00:00 VISIT Spirit ESTAB PT - CHI LEVEL 4 [facility] 2021-08-04 2021-08-04 OFFICE STLMLC STLMLC [id number] Co mmon 00:00:00 00:00:00 VISIT Spirit ESTAB PT - CHI LEVEL 4 [facility] 2021-06-16 2021-06-16 OFFICE STLMLC STLMLC [id number] Co mmon 00:00:00 00:00:00 VISIT Spirit ESTAB PT - CHI LEVEL 2 [facility] 2021-05-10 2021-05-10 (TEL) STLMLC STLMLC [id number] Co mmon 00:00:00 00:00:00 [facility] 2021-05-06 2021-05-08 [facility] Alex [facility] [id number] [facility] 05:13:00 16:10:00 Encounter [facility] 2021-05-06 2021-05-08 Inpatient GHAZALA GANDHI [facility] Surgery [id number] [facility] 05:13:00 16:10:00 [place] 2021-05-06 2021-05-[address] [facility] [id number] [facility] 07:30:00 13:34:[address] [facility] 2021-05-06 2021-05-[address] [facility] [id number] 07:45:00 12:20:00 [facility] 2021-05-06 2021-05-06 Travel [facility] [id number] [facility] 00[facility]00 [facility] 2021-05-04 2021-05-04 Outpatient GHAZALA SLE SLE [id number] [facility] 16:20:46 23:59:00 2021-05-04 2021-05-04 [facility] [id number] 15:15:00 23:59:00 Encounter [facility] 2021-05-04 2021-05-04 Travel [facility] [id number] [facility]00 00:00:00 [facility] 2021-05-03 2021-05-03 Outpatient GHAZALA GANDHI SLEXenia SLE [id number] [facility] 13:55:09 23:59:00 [place] 2021-05-03 2021-05-03 [facility] [id number] 13:30:00 23:59:00 Encounter [facility] 2021-05-03 2021-05-03 Outpatient [facility] [id number] [facility] 00:00:00 23:59:00 Shan 2021-05-03 2021-05-03 Outpatient GHAZALA CLAY SLEH SLEH [id number] [facility] 00:00:00 00:00:00 KENDAL 2021-05-03 2021-05-03 Outpatient GHAZALA SLEH SLEH [id number] [facility] 00:00:00 00:00:00 2021-05-03 2021-05-03 Orders [facility] [id number] 00:00:00 00:00:00 [facility] 2021-03-31 2021-03-31 OFFICE STLMLC STLMLC [id number] Co mmon 00:00:00 00:00:00 VISIT Spirit ESTAB PT - CHI LEVEL 4 [facility] 2021-03-29 2021-03-29 (TEL) STLMLC STLMLC [id number] Co mmon 00:00:00 00:00:00 Spirit - CHI [facility] 2021-03-24 2021-03-24 (TEL) STLMLC STLMLC [id number] Co mmon 00:00:00 00:00:00 Spirit - [facility] 2021-03-17 2021-03-17 OFFICE STLMLC STLMLC [id number] Co mmon 00:00:00 00:00:00 VISIT Spirit ESTAB PT - CHI LEVEL 4 [facility] 2021-03-17 2021-03-17 OFFICE STLMLC STLMLC [id number] Co mmon 00:00:00 00:00:00 VISIT Spirit ESTAB PT - CHI LEVEL 5 [facility] 2021-03-03 2021-03-03 (TEL) STLMLC STLMLC [id number] Co mmon 00:00:00 00:00:00 Spirit - [facility] 2021-02-01 2021-02-01 OFFICE STLMLC STLMLC [id number] Co mmon 00:00:00 00:00:00 VISIT NEW Spir it PT LEVEL 3 - CHI [facility] 2021-01-18 2021-01-18 Outpatient GHAZALA NOVAK MDA MDA [id number] 09:55:19 23:59:00 JENNIFER braswell 2020-09-10 2020-09-10 Outpatient GHAZALA NOVAK MDA MDA [id number] 09:43:00 23:59:00 JENNIFER braswell 2020-09-10 2020-09-10 Outpatient GHAZALA GASTON MDA MDA [id number] 12:58:13 15:03:34 CHIP braswell 2020-09-10 2020-09-10 Outpatient GHAZALA NOVAK MDA MDA [id number] 10:07:55 10:07:55 JENNIFER braswell 2019-09-05 2019-09-05 Outpatient GHAZALA NOVAK MDA MDA [id number] 07:57:02 23:59:00 JENNIFER braswell 2019-09-05 2019-09-05 Outpatient GHAZALA GASTON MDA ERIC [id number] 13:40:32 14:55:52 CHIP braswell 2019-09-05 2019-09-05 Outpatient GHAZALA NOVAK MDA MDA [id number] 09:58:52 09:58:52 JENNIFER braswell Results Test Description Test Time Test Comments Results Result Comments Source BASIC METABOLIC PANEL 2021-09-01 06:57:00 Test Item Value Reference Range Interpretation Comme nts SODIUM (test code = NA) 138 mmol/L 136-145 N POTASSIUM (test code = K) 4.1 mmol/L 3.5-5.1 N CHLORIDE (test code = CL) 101.0 mmol/L 98-107 N CARBON DIOXIDE (test code = 25.0 mmol/L 21-32 N CO2) GLUCOSE (test code = GLU) 115 mg/dL 70-110 H BLOOD UREA NITROGEN (test code 13 mg/dL 7-18 N = BUN) GLOMERULAR FILTRATION RATE 81.6 >60 U nit of measure: mL/min/1.73 (test code = GFR) [id number] Range:Healthy Adults >90 mL/m in/1.73 m2 For Chronic Kidney Disease: Stage II Mild Decreas e in GFR 60-90 Stage III Moder ate Decrease in GFR 30-59 St age IV Severe Decrease in GFR 15-29 Stage V Kidney Failure <15 CREATININE (test code = CREAT) 0.96 mg/dL 0.55-1.30 N CALCIUM (test code = CA) 8.4 mg/dL 8.2-10.1 N SPECIMEN COMMENT: POD #1- XR KNEE 1 OR 2 V [id number] 06:48:00 [facility]UDIA [facility]ORALES : 1965 Sex: M Patient Name: CLAUDIA MORALES Unit No: [id number] EXAMS: CPT CODE: [id number] XR KNEE 1 OR 2 [place] 31403 IMAGES PROVIDED: 2 FINDINGS: Postoperative changes from right total knee arthoplasty demonstrated without evidence of immediate complication. No acute fracture is visualized. IMPRESSION: Postoperative exam as above. at 0648 Reported and signed by: Obi Norris M.D. CC: Per Laureano MD Technologist: Sofy Ann (R) Transcribed D/ (0648) DedraSLJ [facility] NAME: CLAUDIA MORALES [address] [facility] PHYS: Per Martinez MD : 1965 AGE: 55 SEX: M [place] [address] LOC: Y.505 A PHONE #: [phone] EXAM DATE: 08/31/2021 STATUS: ADM INFAX #: [phone] RAD #: D/C DT PAGE 1 Signed Report Patient Name: CLAUDIA MORALES Unit No: [id number] EXAMS: CPT CODE: [id number] XR KNEE 1 OR 2 V RT 18615 (Continued) Orig Print D/T: S: 09/01/2021 (0651) [facility] NAME: CLAUDIA MORALES [address] [facility] PHYS: Per Martinez MD : 1965 AGE: 55 SEX: M [place], [place] [address] LOC: Y.505 A PHONE #: [phone] EXAM DATE: 08/31/2021 STATUS: ADM IN FAX #: [phone] RAD #: D/C DT PAGE 2 Signed Report HGB [id number] 05:58:00 Test Item Value Reference Range Interpretation Comments HEMOGLOBIN (test code = HGB) 11.1 g/dL 12-16 L HEMATOCRIT (test code = HCT) 33.9 % 37-47 L SPECIMEN COMMENT: POD #1COMPREHENSIVE METABOLIC [id number] 19:10:00 Test Item Value Reference Range Interpretation Comments SODIUM (test code = 142 mmol/L 136-145 N NA) POTASSIUM (test code = 3.7 mmol/L 3.5-5.1 N K) CHLORIDE (test code = 104.0 mmol/L 98-107 N CL) CARBON DIOXIDE (test 26.4 mmol/L 21-32 N code = CO2) GLUCOSE (test code = 90 mg/dL 70-110 N GLU) BLOOD UREA NITROGEN 12 mg/dL 7-18 N (test code = BUN) GLOMERULAR FILTRATION 70.5 >60 Unit o f measure: RATE (test code = GFR) mL/mi n/1.73 [id number] Range:Healthy Adults >90 mL/min/1.73 m2 For Chronic Kidney Disease: Stage II Mild Decrease i n GFR 60-90 Stage III Moderate Decrea se in GFR 30-59 St age IV Severe Decre ase in GFR 15-29 St age V Kidney Failur e <15 CREATININE (test code 1.09 mg/dL 0.55-1.30 N = CREAT) TOTAL PROTEIN (test 7.9 g/dL 6.4-8.2 N code = PROT) ALBUMIN (test code = 4.2 g/dL 3.4-5.0 N ALB) GLOBULIN (test code = 3.7 g/dL 2.2-4.2 N GLOB) ALBUMIN/GLOBULIN RATIO 1.1 0.7-2.0 N (test code = A/G) CALCIUM (test code = 8.7 mg/dL 8.2-10.1 N CA) BILIRUBIN TOTAL (test 0.20 mg/dL 0.2-1.00 N code = BILT) SGOT/AST (test code = 30.0 U/L 15-37 N AST) SGPT/ALT (test code = 55.0 U/L 12-78 N Please note new ALT) normal range. ALKALINE PHOSPHATASE 76 U/L 46-116 N TOTAL (test code = ALKP) CBC W/AUTO [id number] 16:12:00 Test Item Value Reference Range Interpretation Comments WHITE BLOOD CELL (test code = WBC) 8.0 K/mm3 5.7-10.5 N RED BLOOD CELL (test code = RBC) 4.81 M/mm3 4.2-5.4 N HEMOGLOBIN (test code = HGB) 12.8 g/dL 12-16 N HEMATOCRIT (test code = HCT) 39.1 % 37-47 N MEAN CELL VOLUME (test code = MCV) 81 fL 80-98 N MEAN CELL HGB (test code = MCH) 26.6 pg 27-34 L MEAN CELL HGB CONCENTRATION (test 32.7 g/dL 30.8-34.1 N code = MCHC) RED CELL DISTRIBUTION WIDTH (test 13.2 % 11-16 N code = RDW) PLT (test code = PLT) 228 K/mm3 130-400 N MEAN PLATELET VOLUME (test code = 10.3 fL 8.9-12.1 N MPV) NEUTROPHIL % (test code = NT%) 56.1 % 45-70 N LYMPHOCYTE % (test code = LY%) 32.6 % 20-40 N MONOCYTE % (test code = MO%) 6.6 % 3-10 N EOSINOPHIL % (test code = EO%) 2.4 % 1-5 N BASOPHIL % (test code = BA%) 0.5 % 0.0-1.1 N NEUTROPHIL # (test code = NT#) 4.47 K/mm3 2.00-7.50 N LYMPHOCYTE # (test code = LY#) 2.60 K/mm3 1.50-4.00 N MONOCYTE # (test code = MO#) 0.53 K/mm3 0.2-0.8 N EOSINOPHIL # (test code = EO#) 0.19 K/mm3 0.04-0.4 N BASOPHIL # (test code = BA#) 0.04 K/mm3 0.02-0.10 N MANUAL DIFF REQUIRED (test code = NO MANUAL DIFF MDIFF) NUCLEATED RED BLOOD CELL (test 0 % 0-0 N code = NRBC) Tissue [id number] 17:55:21 Test Item Value Reference Range Interpretation Comments Case Report (test code Surgical Pathology = 104) Report Case: [id number] Authorizing Provider: Sameer Gandhi MD Collected: 05/06/2021 12:41 PM Ordering Location: [facility] PERIOPERATIVE Received: 05/06/2021 03:47 PM SERVICES Pathologist: Marco Buchanan MD Specimen: Kidney, Right, RIGHT RENAL MASS AND FAT SURROUNDING MASS, SUTURE ROME AREA ON TUMOR WITH KNOWN CAPSULAR VIOLATION DUE TO RETRACTION , NO CONCERN FOR POSITIVE MARGIN DIAGNOSIS (test code = j4ngtJCoGXRgd6yxTSNqfBB 3220) uZzEwMzNcZnRuYmpcdWMxIH tccnRmMVxlcGljOTYwMVxhb yBfRQPcyVEmE5PuovagQXxi HZ4qEV2clHzwlDSsdHQyJNN uNjYlx0zqe930dTYmq3xqXB KKyqpmgKt8xVhuY16ok7Z0L kxsI37yjKZfARH6BDPgDMVm kMOoQZVpRQT1YREieUHbG1z uWVKtML7khpqtLMraYSzaWC QyxPK2OYMijEKxW7ZwPCEkG OyvRQTmtev7InWmVj8yuYMk eTcyMFxwYXJkXHBsYWluXGZ nNlSmDWaKCW5IZHtlTouZAK QsIFBBUlRJQUwgTkVQSFJFQ 4UGYHhxpBGcHJ7dXJLeS1uN NJBgX2MBVSSSOE5ELZMUZHn AUTWGObZEDy3DNJqxUSBdPF AgICAgICAgICB+IEdSRUFUR PGZUNFADQ3YTNMCFKWSF8nM NuvgMl7kBYTVJVWdnnYsHMI cPICvTUUeTV5nMh2iIBZCJ5 GnZcAGNz9HIBFfN3WVOxsoB XIgICAgICAgICAgICB+IFRV PU2VZCmRJCjQWNUdPB8oG2w ETkVZXHBhciAgICAgICAgIC GdMT8oHTELCbUHV8tOCIYNY N1MRebOIxYTN5QERPmVGHVT B8LFMWoGUEiDFKXfJ32RTQL OVClccGFyICAgICAgICAgIC AzwnFbJIORIL8WCI5lS1ELI EUgMlxwYXIgICAgICAgICAg ICB+IRCVNlGNJCLABA6PRO9 BGVSCJ32IYE4NOMIGIZWAN6 UgSURFTlRJRklFRFxwYXIgI CAgICAgICAgICB+ICBOTyBM SO0LDD5WSYEGKPbPFxRCJmU BK7fWNlJRMZFIMAaMZISFWB XjlcQuYMFqLBYmYTTmBS4zI UNOKCdLVJ7QEEQrP2XLN4Jg J7yCA1NSDhxHFRISB76uDOS DFa7uOVWDB8YkANNqTCIvmX Otz99hRjCtSIRmZNhdYDV6b 1xydGYxXHNzdGUxODAwMFxh bnNpXGRlZmxhbmcxMDMzXGZ 0bmJqXHVjMVxkZWZmMHtcZm 0lnZLkbCvmCoJcXGSyl7vzi iUSmamhvAu5o5xuXYKlVzZ3 jNMzVAyjT4oilzGfkKLxXCI fVPw1tK40OPJltM6jjCQrTL tgejFfYvV8XDwpXEFoScG7V CXxvGXqYJAqG2yfRXMcRUur IWUeQAlbcHEwBRY9sOkkv1Q 5bGVzaGVldHtcZjBcZnMyMi VTo5OmOFk1aEvnE9VoBDVeS aU4iGKhMOIaHVoqZVKtNAEm ktP7bQ43EThewlE4qQMyr4O tc87mu470jV0zfGJaVXQ1EL NjGPFuzMIkYYGtWIB0RIDwo ZWeM3ypFXFmUF7oudecSCyx GBpvETVfaBP7XFCxsLUfS7U nTTPeHFezTTVbson7EvZnOt 4jlORhuKukZFdrb9jnf8imr ZPbOfb4OLBdUbQeQlqqPLnt b5Ufg5zmSMNgxo9yECC5qWC ltQyzt6P2yRJrGCYkcVQeDP BqEJ2fvWYtZVIamO9xesgvA HBnYnJkcmhlYWRccGdicmRy Vh1hmQedWIB8UEzvI9pdiJ6 wRcZ3NZozD0ryoE1xTDm4WD ezPDBpeVW0aeQ9XDUhpFYlC 2DnyA7jSXKpHE6fesj7d4sr AWY6WQocXDIuXkM0chS9UVR pfIZhWSLpqFaaRDpdy894LJ Y4BnUxZCWgq8LvS4ZttSekA 18eiDtiC97cFXDslJxyhT3m jNpurS0fIuXlHqGdYRmhwCi fUO2sIQSkN3mxlFJgZMYfJJ JiB2orVxCcmR4mhDziROqnm pCaPKGqTpc4QCZwcOTrBRZg Ori0ADAzAKDcR67tzcquRQY 0nB7hl7vyn4EvIRbkGXI0UZ Bty83bRGshjjP8ZBdpUl4pB SPlQHw6CFiiESW7pG== COMMENT (test code = i3mrwBEbDETwpNS9CyWpLWL 0409) gf7ycy3YqdTVjoNVbXAwyaP EhmtDuve05nJN1iH23AW6sC WIkHrH7WWBdplN0Rsp2NUKy LEMsmFSrL038z3qkh5eemmO noHF7vPevOLXclxrgCsS1SM guLWEanyciVBd9SMsqXUTsu OX0JKVlaHNkX0DfQWVxLQ0z iuq6XFS3GEopAINqSxP6TBW iwTGuDCZpnKrwIWtdk819HG H1YtSkDGUeodMasWlmjM3oZ wHvNVNQWKC3VEMyqfVdGPK5 xO8hQYvuGKQoM9WaxRfyg8D eikZbeLI2rKNqtU9fKZTzaE VrQP1zdXkiUWlhtRAxY7suP iBccGFyfQ== SYNOPTIC REPORT (test KIDNEY: code = 5765) NephrectomyKIDNEY: NEPHRECTOMY, PARTIAL OR RADICAL - All Piitzonsr0np Edition - Protocol posted: 09/02/2020 SPECIMEN Procedure: Partial nephrectomy Specimen Laterality: Right TUMOR Tumor Focality: Unifocal Tumor Size: Greatest Dimension (Centimeters): 3.0 cm 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 Histologic Grade (WHO / ISUP): G2 (nucleoli conspicuous and eosinophilic at 400x magnification, visible but not prominent at 100x magnification) Tumor Extent: Limited to kidney Sarcomatoid Features: Not identified Rhabdoid Features: Not identified Tumor Necrosis: Not identified Lymphovascular Invasion: Not identified MARGINS Margin Status: Invasive carcinoma present at margin Margin(s) Involved by Invasive Carcinoma: Renal parenchymal REGIONAL LYMPH NODES Regional Lymph Node Status: Not applicable (no regional lymph nodes submitted or found) DISTANT METASTASIS PATHOLOGIC STAGE CLASSIFICATION (pTNM, AJCC 8th Edition) Reporting of pT, pN, and (when applicable) pM categories is based on information available to the pathologist at the time the report is issued. As per the AJCC (Chapter 1, 8th Ed.) it is the managing physician s responsibility to establish the final pathologic stage based upon all pertinent information, including but potentially not limited to this pathology report. Primary Tumor (pT): pT1a Regional Lymph Nodes (pN): pN not assigned (no nodes submitted or found) ADDITIONAL FINDINGS Additional Findings in Nonneoplastic Kidney: None identified CPT Code(s) (test code q3yasJJgIMAxdNF6IpVnBMN = 3357) es9lun8SzoNSrjCCsVWslkR XzdkHtnd77tUE0gB87MF3iR VMpFbV4MAYqlmK6Hxv9SQUe OXHuxPArH630j7xrv6awfeH fcGH1wDdvQFBakvtqFsM9XA ziBTKyyoieAJy8HNbtNKHsn RX7OYXqcNSjG2ZsSLNlTV9m bgy4SQU1JOerFOHfEyH7ULR tgKYmTZHbzSmrSKkih197DU V7EsXjTMGfkzNkyQesgH7vU iRdEES4PDIxG5ezPWR4 CLINICAL HISTORY (test n4njyTLiAIDfyIU4UdDfKLP code = 3356) hr3svu4DgoTXykZObVCwjsN SfqsSomu73hPJ9cT11RV9aQ GWqImB1KLQwglN3Cci7MBUo YRJhgTGtP038u3zai8sllyB rbFX2EYYmGEVsJ4KmYE1eJO JtvPPzZ02vgEVoWGH7JQOkK YFzbVBwJSDtTDC4VDPtgNDk T0ecLFIkFG6pkmmxTUkrLEi iAGTduES7GAXdvJEhZ7YkNS QkRFvsVAXhvgz4MvOcKj7dk GVyeTcyMFxwYXJkXHJpMVxw bGFpblxmczIwXGNmMSBSaWd rmSBiNZ7yvGKyRPUzOXhtZE J9 SPECIMEN SOURCE (test d9hgcEImCDDkrMU9LoAxSSS code = 3377) tk6njs3LnvDUdlZCfMFisfL VtuzBvpj58hTM3zQ47SF1zB UDuWvT7ZHVbywW8Gik7ZVKc BZNrxGHbO727z4uxp0dtjgD upPI6qVatYDNirgrkXcV6JP isAEKqnueoOCh0JTuoGYRcs HJ5LKBiyDWuX2NjNMSbGG2g vnd2FEL6GLleHCSoBkF1OEZ zyOUrNPMmeCvdAAfbw125GR T3KmJnYODnupHtuDhnvN4cF tWqGAFFeRWkGYqrTKQyM4s4 XHBhcn0= GROSS DESCRIPTION i0wzfINqIYVggGHpBiVuPJG (test code = 3366) yPXMmb6vwDXYnyURpRhPnLe NcZnRuYmpcdWMxXGRlZmYwe 8gzw079rKPtm2prTEGcCyC7 rEMpIJRreBJpG262a9ujy2y ffwSbjUK7GPMkLHC5XNioka AltwH8WLegdMXwOcV9EImla ePvQUbebhVtvtNhJcf7YPEf L800GAJ3tElrs5siTUP4VRI nVIYuDgTgFc2puEMhR895UH DzLPIHSQNdpIp3MPZhehVyq pSsnMNQl393B176f6boUCBj mbHbvMlGlokxs6pzG844STI hcGVydzEyMjQwXHBhcGVyaD N6ETGgOB2rqtphFpWeLH0hv yjqEkZpVA3ccpp2BaUcQR2n cmdiNzIwXGhlYWRlcnkwXGZ ga7FscqrtLJ3jK8Dsx4J7zM 9maXRcZGVmdGFiNzIwXGZvc z3luXImFVlyw0UmSPG3xcK5 bHMdaMKzKVDtAL73Wpurc2O lZssdFVL4ANUltiGtm2Euu5 yuQvEwxoTcT1fnK8MnHKIkX WJzWDAjWvFxytRmw4Fsr8Rb mAObwJz7u3plBYFtJRGroIw ke7ujAYP2WEWoA5E8tVXqo4 vtRIqjRXFbdDS6ivqrLRuuW QNxltL7hvjaDJvyCUZmvSA3 ozrzQSzzRUClPdB7tztzNSk gJZKfBDY7UYwwa246EBK7HY xzYmtwYWdlXHBnbmNvbnRcc GduZGVjXHBsYWluXHBsYWlu XGYwXGZzMjRccWxccGxhaW5 hXqAuIcBtFAedDP0jHDLfF4 agvYBoTEDkYPHpY8ssTlVvn H7kcMcmVArymtVgXFUcF1Yb dmVkIGZyZXNoIGxhYmVsZWQ gdGhlIHBhdGllbnQncyBuYW 9eJNTvE0Rbu5Ljt90ajfSxX mVyIGFuZCAicmlnaHQgcmVu NBwegDNlnsYezJCcUWH6OkM tyWSyQlUwsEXlXdSfA39bvX QoonbaaZClpOWoqDM7ovQrZ SFluySlSRzoxhKpkUDpK3Qj iRxlo6m0jBV4dIE0jlVmJsO xD66na9TaMWE9JUWsFXNjzV NjvQ1ntWaebWKmUwI1UWHgT CBHZXJvdGEncyBmYXNjaWEs GDScTEFmBEEpPXF4LLPsNKE 1AEWoUbUhaMDlM4chXZavsN Ngv2SfNFX0ZHBzDYQuuUIjs X6npSumcILwRiX3WiNlO3Ph dGlvbmluZyByZXZlYWxzIGE vAw4gMGpcLc20TUoqFL63JO QgWTAddi64CKbgr0pzDFUfI 8PvgIpdoBAwl6WfhUSmtSLy SPPrnrueZ5I1LUIkAXZqtwH vHOpspNAoncQfeWY5zRG0BW CgVQgdrWnxE0diB3Ghq9Yzt WJlZCBtYXNzIHRoYXQgaXMg vWCofkO1uINrDSNnSAPjcPF ekb1sEMKwMLEjRHGsamLseO 8myEUlRKQubM6nUYbhOOMqm RJ2bD6vPIRrGFJkST9kfISt YXBzdWxlLCBhbmQgaXMgMC4 kMYIkLSFqj24yvTvyNRUzxa luZXBocmljIGZhdCBtYXJna X4fKVAAxLDcamZnBWupcO3y GYDkqE59i2w3BSUwf8kvvzA 4MTOdikShL8e9nKMfjWCqzL JgVNWznylkAG1iKCuxjD7uS L5zn7CpAoYhG6EyzVskgeai JzSpTvQ3tYVfwFFepI4gnFp ouEGbVvE4QFNpwfTdlBDoPP F7ZX3vrQDkaL97IIBveDDee 4IusEL1KIT8zRMyuGFiTEMu JdMeRf0fZHvuN6ThwLQepIA gpT6hsuJwjfBhB1Bca3HcjN HdkMNfPPGdPMRiMI5zETTak OQeo0WzoHF6zPSaNBIxC1Gv i74rXPJtFOdqZ7n1KSDgsEa lIGVudGlyZSBtYXNzIGFyZS YbvDGecWW1JOYgGKKbPl7am T33mmkkfAZnMIJhlqRCcprk H21cCXvcMZJmIMPbBL6jrFa eJCqbzWXnK6iwGyUKfTAvJN SpdrMGGI4mzHPyAODelVghB 3BlcmluZXBocmljIGZhdCBt WATraL92RADuQJTcRPAnirL AsXS8aqZeXMEeXQW1OO3dOY 8bGKikMQHimMNnXNArR0Okf 16nB89cEPwjPOXnPBUlaW6y bnZvbHZlZCBraWRuZXksIHB jdlZyoiIrG3VqTGJweOWsCG NrTUA7YJ8ky3VnpZ4mnIQvZ J4ybGepVQjoLE0eVLZubolv ZXBocmljIGZhdCBtYXJnaW5 zXHBhciBBIDEwLUEgMTMtbW AjibZ6swOkWGOkmdLigC6zu ZAmUHMgwU9bFR7qEKW3fHVy ZWQgYXJlYVxwYXIgQSAxNC1 SDKN9XD2sh7SbaU2ndARjRM 7oeHnxNNivlNHiZ7kvDXZpO NMkPV6bjVP3sYHvBHEvJ7Jg t94aIMItbrZVENW3TFTbROl nNZP4NBZeSLFgsYAjoZ9nsV felVJoHzW7XELybxhkVSSjC GlsYXIgQXJndWVsbGVzLCBQ MRjkDZLlXZKZL5FyZEVyij7 = MICROSCOPIC a5pjnDGeBIBbqRG3NsLiFUH DESCRIPTION (test code qr8rul3RuyUNlcNTkRPuewB = 3371) KzqgDvgw95aUP7bU70OI4lC ZBmSyF3TTPdoeD1Jxr4RCSk BEGlmGQgD032v8msx3grxbJ ilUS2hOttQFCwmhfsMcS2UZ rgMVKkjmndKTo2URbcWUJtp AZ1FMLtkCHmX1JdRHWbYP7r dvj7GZH9NCsrQIKkMzS7BQA yiIWdAXQmtCytYCxtx929TN X2JwXwWMYqmuMntEvqdR8vI iEqUPATZWXhk4AuVOAvAOVg cn0= Gross assessment was [facility] performed at ([facility], code = 2777) Department of Pathology, [address] [place] [address], Technical component [facility] was performed at ([facility], code = 2778) Department of Pathology, [address] [place] [address], Professional component [facility] was performed at ([facility], code = 2779) Department of Pathology, [address] [place] [address], [facility] [id number] 17:55:21Surgical Pathology Report Case: [id number] Authorizing Provider: Sameer Gandhi MD Collected: 05/06/2021 12:41 PM Ordering Location: 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 KIDNEY: NephrectomyKIDNEY: NEPHRECTOMY, PARTIAL OR RADICAL - All Hflewxuln6zy Edition - Protocol posted: 09/02/2020PECIMEN Procedure: Partial nephrectomy Specimen Laterality: Right TUMOR Tumor Focality: Unifocal Tumor Size: Greatest Dimension (Centimeters): 3.0 cm 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 Histologic Grade (WHO / ISUP): G2 (nucleoli conspicuous and eosinophilic at 400x magnification, visible but not prominent at 100x magnification) Tumor Extent: Limited to kidney Sarcomatoid Features: Not identified Rhabdoid Features: Not identified Tumor Necrosis: Not identified Lymphovascular Invasion: Not identified MARGINS Margin Status: Invasive carcinoma present at margin Margin(s) Involved by Invasive Carcinoma: Renal parenchymal REGIONAL LYMPH NODES Regional Lymph Node Status: Not applicable (no regional lymph nodes submitted or found) DISTANT METASTASISPATHOLOGIC STAGE CLASSIFICATION (pTNM, AJCC 8th Edition) Reporting of pT, pN, and (when applicable) pM categories is based on information available to the pathologist at the time the report is issued. As per the AJCC (Chapter 1, 8th Ed.) it is the managing physician's responsibility to establish the final pathologic stage based upon all pertinent information, including but potentially not limited to this pathology report. Primary Tumor (pT): pT1a Regional Lymph Nodes (pN): pN not assigned (no nodes submitted or found) ADDITIONAL FINDINGS Additional Findings in Nonneoplastic Kidney: None identified [id number] renal mass Kidney, rightReceived fresh labeled the patient's name, accession number and "right renal mass" is a 4.4 x 2.5 x 2.5 cm previously sutured partial nephrectomy with up to 0.5 cm of attached perinephric fat and Gerota's fascia, and a 5.4 x 5.0 x 1.3 cm aggregateof detached perinephric fat. Sectioning reveals a 3.0 x 2.4 x 1.9 cm pan-yellow, focally hemorrhagic, variegated, partially encapsulated, well-circumscribed mass that is less than 0.1 cm from the parenchymal margin, is abutting the renal capsule, and is 0.3 cm from the perinephric fat margin. The remaining uninvolved kidney parenchyma is pan-pink and homogeneous. Sectioning of the perinephric fat reveals a pan-yellow, fibrofatty cut surface. No discrete lesions are grossly appreciated. Photographic Colorist sections to include the entire mass are submitted as follows:Ink codeParenchymal margin: BlueRenal c apsule/perinephric fat margin: BlackSutured area: OrangeSection codeA1- uninvolved kidney, gnrxhpppbxidfO2-T3-ghqc to parenchymal and perinephric fat marginsA 10-A 13-mass to parenchymal margin and sutured areaA 14-A 16-mass to parenchymal margin, perpendicular sectionsA 17-A 18-detached perinephric fat MELANIE Coley, HT (ASCP)Performed.[facility], Department of Pathology, [address] [place] [address], [facility], [address] [place] [address], [facility], Department of Pathology, [address] [place] [address], [facility] Metabolic Panel - POD [id number] 06:11:29 Test Item Value Reference Range Interpretation Comments Sodium (test code = 137 meq/L 665-644 0741-2) Potassium (test code 3.8 meq/L 3.5-5.1 Specime n slightly = 2823-3) hemolyzed Chloride (test code = 108 meq/L 98-107 H 2074-0) CO2 (test code = 22 meq/L -2027-) BUN (test code = 12 mg/dL 7-21 3094-0) Creatinine (test code 0.80 mg/dL 0.57-1.25 Specim en slightly = 2160-0) hemolyzed Glucose (test code = 97 mg/dL 70-105 2345-7) Calcium (test code = 8.5 mg/dL 8.4-10.2 91741-0) EGFR (test code = [place] [address]-1) CLINICAL DATA T O CALCULATE ESTIMATED GFR. GUILLAUME (test code = GUILLAUME) Dielectric Press Operator ID - JAMARI M Lab Interpretation Abnormal (test code = 93440-4) [facility] [id number] 06:11:29 Test Item Value Reference Range Interpretation Comments SODIUM (BEAKER) (test 137 meq/L 136-145 code = 381) POTASSIUM (BEAKER) 3.8 meq/L 3.5-5.1 Specimen slightly (test code = 379) hemolyzed CHLORIDE (BEAKER) 108 meq/L 98-107 H (test code = 382) CO2 (BEAKER) (test 22 meq/L 22-29 code = 355) BLOOD UREA NITROGEN 12 mg/dL 7-21 (BEAKER) (test code = 354) CREATININE (BEAKER) 0.80 mg/dL 0.57-1.25 Specimen slightly (test code = 358) hemolyzed GLUCOSE RANDOM 97 mg/dL 70-105 (BEAKER) (test code = 652) CALCIUM (BEAKER) 8.5 mg/dL 8.4-10.2 (test code = 697) EGFR (BEAKER) (test INSUFFIC IENT CLINICAL code = 1092) DATA TO CALCULA TE ESTIMATED GFR. Dielectric Press Operator ID - JAMARI MHemoglobin and hematocrit POD # [id number] 05:42:10 Test Item Value Reference Range Interpretation Comments Hemoglobin (test code 11.0 See_Comment L [Auto mated = 786-4) message] The system which generated this result transmit beth reference range : 13.7 - 17.5 GM/ DL. The reference range was not u sed to interpret th is result as normal/abnormal . Hematocrit (test code 33.4 % 40.1-51.0 L = 4544-3) GUILLAUME (test code = GUILLAUME) Dielectric Press Operator ID - [id number] Lab Interpretation Abnormal (test code = 83947-1) [facility] CenterHEMOGLOBIN AND [id number] 05:42:10 Test Item Value Reference Range Interpretation Comments HEMOGLOBIN (BEAKER) (test code = 11.0 GM/DL 13.7-17.5 L 410) HEMATOCRIT (BEAKER) (test code = 33.4 % 40.1-51.0 L 411) Dielectric Press Operator ID - [id number] METABOLIC [id number] 05:24:03 Test Item Value Reference Range Interpretation Comments SODIUM (BEAKER) (test 140 meq/L 136-145 code = 381) POTASSIUM (BEAKER) 4.6 meq/L 3.5-5.1 (test code = 379) CHLORIDE (BEAKER) 109 meq/L 98-107 H (test code = 382) CO2 (BEAKER) (test 23 meq/L 22-29 code = 355) BLOOD UREA NITROGEN 12 mg/dL 7-21 (BEAKER) (test code = 354) CREATININE (BEAKER) 1.01 mg/dL 0.57-1.25 (test code = 358) GLUCOSE RANDOM 116 mg/dL 70-105 H (BEAKER) (test code = 652) CALCIUM (BEAKER) 8.3 mg/dL 8.4-10.2 L (test code = 697) EGFR (BEAKER) (test INSUFFIC IENT CLINICAL code = 1092) DATA TO CALCULA TE ESTIMATED GFR. Dielectric Press Operator ID - DBHEMOGLOBIN AND [id number] 04:32:03 Test Item Value Reference Range Interpretation Comments HEMOGLOBIN (BEAKER) (test code = 11.8 GM/DL 13.7-17.5 L 410) HEMATOCRIT (BEAKER) (test code = 36.2 % 40.1-51.0 L 411) Dielectric Press Operator ID - [id number], CHEST, 1 VIEW, NON [id number] 14:53:00Reason for exam:->manipulation of diaphragm, want to r/o pneumothoraxShould this be performed at the bedside?->Yes [facility] 1965 Sex: MFINAL REPORT Exam: RAD, CHEST, 1 VIEW, NON DEPTDate: 05/06/2021 2:52 PM Indication:manipulation of diaphragm, want to r/o pneumothoraxComparison: None FINDINGS: Lines/Tubes/Devices: None Lungs/pleura:Low lung volumes. Mild perihilar haziness. No pleural effusion. No pneumothorax. Heart/ Mediastinum:Magnified by technique. Bones/Soft Tissues: No acute osseous abnormality. Upper abdomen:Unremarkable. IMPRESSION:Low lung volumes with mild perihilar haziness.No pneumothorax identified. Signed: Inder Suh Verified Date/Time: 05/06/2021 14:53:47 Reading Location: [facility] Radiology Reading Room BASIC METABOLIC [id number] 14:38:01 Test Item Value Reference Range Interpretation Comments SODIUM (BEAKER) (test 139 meq/L 136-145 code = 381) POTASSIUM (BEAKER) 4.1 meq/L 3.5-5.1 (test code = 379) CHLORIDE (BEAKER) 108 meq/L 98-107 H (test code = 382) CO2 (BEAKER) (test 20 meq/L 22-29 L code = 355) BLOOD UREA NITROGEN 13 mg/dL 7-21 (BEAKER) (test code = 354) CREATININE (BEAKER) 0.99 mg/dL 0.57-1.25 (test code = 358) GLUCOSE RANDOM 155 mg/dL 70-105 H (BEAKER) (test code = 652) CALCIUM (BEAKER) 8.4 mg/dL 8.4-10.2 (test code = 697) EGFR (BEAKER) (test INSUFFIC IENT CLINICAL code = 1092) DATA TO CALCULA TE ESTIMATED GFR. Dielectric Press Operator ID - GREG GHEMOGLOBIN AND [id number] 14:11:03 Test Item Value Reference Range Interpretation Comments HEMOGLOBIN (BEAKER) (test code = 13.0 GM/DL 13.7-17.5 L 410) HEMATOCRIT (BEAKER) (test code = 38.8 % 40.1-51.0 L 411) Dielectric Press Operator ID - [id number] Leuko-Red [id number] 06:22:00 Test Item Value Reference Range Interpretation Comments CROSSMATCH (test code = 2264) COMPATIBLE Unit ABO (test code = A Pos 4056093) UNIT NUMBER (test code = [id number] 934-0) Status (test code = 1418078) READY Blood Bank Product (test code RED BLOOD CELLS = 2263) PRODUCT CODE (test code = X5823N96 933-2) [facility] CenterABORH, [id number] 06:18:00 Test Item Value Reference Range Interpretation Comments ABO Grouping (test code = 2588) A Rh Factor (test code = 2589) [facility]2021-05-03 22:50:32 Test Item Value Reference Range Interpretation Comments SARS-COV2/RT-PCR Negative Not Detected, (test code = Negative, See 00532-1) external report for linked test SARS-COV-2 [facility] PERFORMING LAB (test code = 42358-6) GUILLAUME (test code = Negative result for this GUILLAUME) test determines that SARS-CoV-2 RNA was not present in the specimen above the Limit of Detection (LOD). However, Negative results do not preclude SARS-CoV-2 infection and should not be used as the sole basis for treatment or patient management decisions. Negative results must be combined with clinical observations, patient history, and epidemiological information. A false negative result may occur if a specimen is improperly collected, transported or handled. A false negative result should be considered if patient's recent exposures or clinical presentation indicate that COVID-19 (SARS-CoV-2) is likely and diagnostic tests for other causes of illness are negative. Re-testing should be considered in cases of suspected false negatives. The limit of detection for this assay is 800 copies/mL. This SARS CoV-2 test is a real-time RT-PCR test intended for the qualitative detection of nucleic acid from SARS-CoV-2 in a nasopharyngeal swab specimen collected from individuals suspected of COVID-19 by their healthcare provider. This test has not been Food and Drug Administration (FDA) cleared or approved. This is a modified version of an approved Emergency Use Authorization (EUA) and is in the process of review by the FDA. Once authorized by the FDA, the issued EUA will be effective until the declaration that circumstances exist justifying the authorization of the emergency use of in vitro diagnostic tests for detection and/or diagnosis of COVID-19 is terminated under Section 564(b)(2) of the Act or the EUA is revoked under Section 564(g) of the Act. Fact Sheet for Healthcare Providers:https://www.[employer]/sites/default/f galen/product/documents/F act_Sheet_HC_Providers_L gyo_NABE-KxB-8.pdf Fact Sheet for Healthcare Patients:https://www.[employer]/sites/default/fi les/product/documents/Fa ct_Sheet_Patients_Lyra_S ARS-CoV-2.pdf Performing Laboratory:[facility], [place] [address] [place], [place] [address]ARS-COV2/RT-PCR ([facility])2021-05-03 22:50:32 Test Item Value Reference Range Interpretation Comments SARS-COV2/RT-PCR (test Negative Not Detected, Negative, code = 6925798) See external report for linked test SARS-COV-2 PERFORMING LAB [facility] (test code = 5741278) Negative result for this test determines that SARS-CoV-2 RNA was not present in the specimen above the Limit of Detection (LOD). However, Negative results do not preclude SARS-CoV-2 infection and should not be used as the sole basis for treatment or patient management decisions. Negative results must be combined with clinical observations, patient history, and epidemiological information. A false negative result may occur if a specimen is improperly collected, transported or handled. A false negative result should be considered if patient's recent exposures or clinical presentation indicate that COVID-19 (SARS-CoV-2) is likely and diagnostic tests for other causes of illness are negative. Re-testing should be considered in cases of suspected false negatives.The limit of detection for this assay is 800 copies/mL.This SARS CoV-2 test is a real-time RT-PCR test intended for the qualitative detection of nucleic acid from SARS-CoV-2 in a nasopharyngeal swab specimen collected from individuals suspected of COVID-19 by their healthcare provider.This test has not been Food and Drug Administration (FDA) cleared or approved. This is a modified version of an approved Emergency Use Authorization (EUA) and is in the process of review by the FDA. Once authorized by the FDA, the issued EUA will be effective until the declaration that circumstances exist justifying the authorization of the emergency use ofin vitro diagnostic tests for detection and/or diagnosis of COVID-19 is terminated under Section 564(b)(2) of the Act or the EUA is revoked under Section 564(g) of the Act.Fact Sheet for Healthcare Prov iders:https://www.[employer]/sites/default/files/product/documents/Fact_Sheet_HC _Szzrhmaud_Mods_FZZM-XxP-8.pdfFact Sheet for Healthcare Patients:https://www.[employer]/sites/default/files/product/docume nts/Zpxp_Yviwn_Vatfcdwm_Ccez_SVDC-ZiW-0.pdfPerforming Laboratory:[facility] [place] [address]Ujaj and screen, [id number] 18:20:00 Test Item Value Reference Range Interpretation Comments ABO/RH AUTOMATED (BEAKER) (test A POSITIVE code = 2260) Ab Scrn (test code = 890-4) NEGATIVE [facility] [id number] 15:17:29 Test Item Value Reference Range Interpretation Comments SODIUM (BEAKER) (test 140 meq/L 136-145 code = 381) POTASSIUM (BEAKER) 4.2 meq/L 3.5-5.1 Specimen slightly (test code = 379) hemolyzed CHLORIDE (BEAKER) 105 meq/L 98-107 (test code = 382) CO2 (BEAKER) (test 26 meq/L 22-29 code = 355) BLOOD UREA NITROGEN 18 mg/dL 7-21 (BEAKER) (test code = 354) CREATININE (BEAKER) 1.14 mg/dL 0.57-1.25 Specimen slightly (test code = 358) hemolyzed GLUCOSE RANDOM 86 mg/dL 70-105 (BEAKER) (test code = 652) CALCIUM (BEAKER) 9.7 mg/dL 8.4-10.2 (test code = 697) EGFR (BEAKER) (test INSUFFIC IENT CLINICAL code = 1092) DATA TO CALCULA TE ESTIMATED GFR. Dielectric Press Operator ID - [id number] 14:49:40 Test Item Value Reference Range Interpretation Comments Hemoglobin (test code 13.7 See_Comment [Auto mated = 786-4) message] The system which generated this result transmit beth reference range : 13.7 - 17.5 GM/ DL. The reference range was not u sed to interpret th is result as normal/abnormal . GUILLAUME (test code = GUILLAUME) Dielectric Press Operator ID - [id number] Lab Interpretation Normal (test code = 26724-5) [facility] CenterHEMOGLOBIN2022-02-28 14:49:40 Test Item Value Reference Range Interpretation Comments HEMOGLOBIN (BEAKER) (test code = 13.7 GM/DL 13.7-17.5 410) Dielectric Press Operator ID - [id number]
[2021-12-29] MEDS ORDERED: LIDOCAINE VISCOUS 2% SOLN 15 ML UDC ONE (21:19)
--- NOTE | 2021-12-29 22:14 | EDPHYS ---
Physician Documentation [facility] Name: Eladio Smith Age: 56 yrs Sex: Male : 1965 Arrival Date: 12/29/2021 Time: 20:51 Bed 12 Private MD: ED Physician Gonzales Gresham HPI: 12/29 22:07 This 56 yrs old Male presents to ER via Ambulatory with complaints of Urinary Problem. rn 22:07 The patient presents with urinary symptoms, retention, unable to void. Onset: The rn symptoms/episode began/occurred this morning. Modifying factors: The symptoms are alleviated by nothing, the symptoms are aggravated by nothing. Associated signs and symptoms: Pertinent negatives: abdominal pain, dysuria, fever, hematuria. Severity of symptoms: At their worst the symptoms were moderate, in the emergency department the symptoms are unchanged. The patient has experienced similar episodes in the past. The patient has been recently seen by a physician:. Pt s/p ventral hernia surgery today, under anesthesia and likely with nichole, sent home without urinating, and still unable to urinate. UNable to urinate since this AM. NO fever. NO hematuria. Not on blood thinners. . Historical: - Allergies: 21:02 No Known Allergies; ld1 - PMHx: 21:02 BPH; Hypothyroidism; Diabetes mellitus; Hypertensive disorder; Kidney cancer; ld1 - PSHx: 21:02 Umbilical hernia; ld1 - Immunization history:: Adult Immunizations up to date, Client reports receiving the 2nd dose of the Covid vaccine. - Social history:: Smoking status: Patient denies any tobacco usage or history of. Patient/guardian denies using alcohol. - Family history:: not pertinent. - Hospitalizations: : No recent hospitalization is reported. ROS: 22:07 Constitutional: Negative for fever, chills, and weight loss, Eyes: Negative for injury, rn pain, redness, and discharge, Neck: Negative for injury, pain, and swelling, Cardiovascular: Negative for chest pain, palpitations, and edema, Respiratory: Negative for shortness of breath, cough, wheezing, and pleuritic chest pain, Abdomen/GI: Negative for abdominal pain, nausea, vomiting, diarrhea, and constipation, Back: Negative for injury and pain, : + urinary retention MS/Extremity: Negative for injury and deformity, Skin: Negative for injury, rash, and discoloration, Neuro: Negative for headache, weakness, numbness, tingling, and seizure. Exam: 22:07 Constitutional: This is a well developed, well nourished patient who is awake, alert, rn and in no acute distress. Cardiovascular: Regular rate and rhythm. No pulse deficits. Abdomen/GI: soft, non-tender, + abd binder in place. Skin: Warm, dry Neuro: Awake and alert, GCS 15 Vital Signs: 21:01 BP 144 / 85; Pulse 69; Resp 18; Temp 98.1(O); Pulse Ox 98% on R/A; Weight 113.4 kg; ld1 Height 5 ft. 10 in. (177.80 cm); Pain 7/10; 22:27 BP 142 / 82; Pulse 74; Resp 18; Pulse Ox 100% on R/A; em6 21:01 Body Mass Index 35.87 (113.40 kg, 177.80 cm) ld1 MDM: 20:55 Patient medically screened. rn 22:07 Differential diagnosis: urinary retention. Data reviewed: vital signs, nurses notes, rn and as a result, I will discharge patient. Counseling: I had a detailed discussion with the patient and/or guardian regarding: the historical points, exam findings, and any diagnostic results supporting the discharge/admit diagnosis, the need for outpatient follow up, to return to the emergency department if symptoms worsen or persist or if there are any questions or concerns that arise at home. Response to treatment: the patient's symptoms have markedly improved after treatment, and as a result, I will discharge patient. Special discussion: I discussed with the patient/guardian in detail that at this point there is no indication for admission to the hospital. It is understood, however, that if the symptoms persist or worsen the patient needs to return immediately for re-evaluation. Based on the history and exam findings, there is no indication for further emergent testing or inpatient evaluation. I discussed with the patient/guardian the need to see the urologist for further evaluation of the symptoms. ED course: No gross hematuria or clots once nichole placed, improved symptoms, comfortable, will dc home. Pt states he has required nichole catheter multiple times in past and also happened after surgery last time, may be the anesthesia or fact that he had nichole catheter placed during surgery as well. . 12/29 21:10 Order name: Nichole; Complete Time: 22:11 rn Administered Medications: No medications were administered Disposition Summary: 12/29/21 22:13 Discharge Ordered Location: Home rn Problem: new rn Symptoms: have improved rn Condition: Stable rn Diagnosis - Retention of urine, unspecified rn Followup: rn - With: Jonathan Johnson MD - When: 5 - 6 days - Reason: Recheck today's complaints, Re-evaluation by your physician Discharge Instructions: - Discharge Summary Sheet rn - Indwelling Urinary Catheter Care, Adult rn - Acute Urinary Retention, Male rn Forms: - Medication Reconciliation Form rn - Thank You Letter rn - Antibiotic return agent - Prescription Opioid Use rn Signatures: Gonzales Gresham MD MD rn Dibbern, Lauren, RN RN ld1
--- NOTE | 2021-12-29 22:14 | ER ---
Nurse's Notes [facility] Name: Eladio Smith Age: 56 yrs Sex: Male : 1965 Arrival Date: 12/29/2021 Time: 20:51 Bed 12 Private MD: Diagnosis: Retention of urine, unspecified Presentation: 12/29 21:01 Chief complaint: Patient states: Hernia repair this morning - reporting abdominal pain ld1 \T\ unable to urinate. Coronavirus screen: At this time, the client does not indicate any symptoms associated with coronavirus-19. Ebola Screen: No symptoms or risks identified at this time. Initial Sepsis Screen: Does the patient meet any 2 criteria? No. Patient's initial sepsis screen is negative. Does the patient have a suspected source of infection? No. Patient's initial sepsis screen is negative. Risk Assessment: Do you want to hurt yourself or someone else? Patient reports no desire to harm self or others. Onset of symptoms was December 29, 2021. 21:01 Method Of Arrival: Ambulatory ld1 21:01 Acuity: AFSHIN 3 ld1 Triage Assessment: 21:02 General: Appears in no apparent distress. uncomfortable, Behavior is calm, cooperative, ld1 appropriate for age. Pain: Complains of pain in abdomen Pain does not radiate. Pain currently is 9 out of 10 on a pain scale. Quality of pain is described as pressure, throbbing, Pain began 4 hours ago. Is continuous. EENT: No signs and/or symptoms were reported regarding the EENT system. Neuro: Level of Consciousness is awake, alert, obeys commands, Oriented to person, place, time, situation. Cardiovascular: Capillary refill < 3 seconds Patient's skin is warm and dry. Respiratory: Airway is patent Respiratory effort is even, unlabored. GI: Abdomen is round Reports lower abdominal pain, upper abdominal pain, bloating. : Reports inability to void, since surgery this morning. Derm: No signs and/or symptoms reported regarding the dermatologic system. Musculoskeletal: No signs and/or symptoms reported regarding the musculoskeletal system. Historical: - Allergies: 21:02 No Known Allergies; ld1 - PMHx: 21:02 BPH; Hypothyroidism; Diabetes mellitus; Hypertensive disorder; Kidney cancer; ld1 - PSHx: 21:02 Umbilical hernia; ld1 - Immunization history:: Adult Immunizations up to date, Client reports receiving the 2nd dose of the Covid vaccine. - Social history:: Smoking status: Patient denies any tobacco usage or history of. Patient/guardian denies using alcohol. - Family history:: not pertinent. - Hospitalizations: : No recent hospitalization is reported. Screenin:10 Abuse screen: Denies threats or abuse. Nutritional screening: No deficits noted. em6 Tuberculosis screening: No symptoms or risk factors identified. Fall Risk Total Gill Fall Scale indicates No Risk (0-24 pts). Assessment: 21:10 Reassessment: see triage note. em6 22:10 Reassessment: Patient appears in no apparent distress at this time. No changes from em6 previously documented assessment. Patient and/or family updated on plan of care and expected duration. Pain level reassessed. Patient is alert, oriented x 3, equal unlabored respirations, skin warm/dry/pink. Vital Signs: 21:01 BP 144 / 85; Pulse 69; Resp 18; Temp 98.1(O); Pulse Ox 98% on R/A; Weight 113.4 kg; ld1 Height 5 ft. 10 in. (177.80 cm); Pain 7/10; 22:27 BP 142 / 82; Pulse 74; Resp 18; Pulse Ox 100% on R/A; em6 21:01 Body Mass Index 35.87 (113.40 kg, 177.80 cm) ld1 ED Course: 20:51 Patient arrived in ED. dt4 20:55 Gonzales Gresham MD is Attending Physician. rn 20:59 Karen Simmons, MARIANA is Primary Nurse. em6 21:02 Triage completed. ld1 21:02 Arm band placed on right wrist. ld1 21:10 Bed in low position. Call light in reach. Side rails up X 1. Pulse ox on. NIBP on. Warm em6 blanket given. 22:12 Jonathan Johnson MD is Referral Physician. rn 22:28 No provider procedures requiring assistance completed. Patient did not have IV access em6 during this emergency room visit. Administered Medications: No medications were administered Medication: 22:12 VIS not applicable for this client. em6 Outcome: 22:13 Discharge ordered by . rn 22:28 Discharged to home ambulatory. em6 22:28 Condition: stable 22:28 Discharge instructions given to patient, family, Instructed on discharge instructions, follow up and referral plans. Demonstrated understanding of instructions, follow-up care. 22:29 Patient left the ED. em6 Signatures: Gonzales Gresham MD MD rn Maddy Gupta RN RN ld1 Karen Simmons RN RN em6 Emerald Kelly dt4
[2021-12-29 23:49] VITALS: TEMP 98.1
[2021-12-29 23:50] VITALS: BP 142/82; O2SAT 100
== END 2021-12-29 22:29 | disposition home or self-care (01) ==
LOC: ER 20:47
DX: R33.9 Retention of urine, unspecified (principal); Z98.890 Other specified postprocedural states
CPT/HCPCS: 99283